=== PATIENT | male | born 1950 | race Caucasian/White ===

== ENCOUNTER → 2024-06-17 | Outpatient (CLI) | payer MEDICARE, OTHER, SELFPAY ==
[2024-06-18 14:11] LABS: PSA, Free 0.57 ng/mL; PSA, Free % 26.1 % (.)
== END | disposition home or self-care (01) ==
LOC: LAB 10:40
PROVIDERS: PCP Family Medicine; Referring Provider Urology; Visit Provider Urology
DX: R97.20 Elevated prostate specific antigen [PSA] (principal)
CPT/HCPCS: 36415; 84153; 84154

== ENCOUNTER → 2024-07-08 | Outpatient (CLI) | payer MEDICARE, OTHER, SELFPAY ==
--- NOTE | 2024-07-08 08:22 | MRI_ITS ---
EXAMINATION: MR Pelvis WO/W Contrast COMPARISON: None CLINICAL HISTORY: 73-year-old male with elevated PSA Most recent PSA = 2.18 ng/ml TECHNIQUE: Standard prostate MR protocol was used before and after administration of 16 cc of IV Clariscan. FINDINGS: Prostate volume: 83 cc PSA density: 0.03 ng/ml2 Length of membranous urethra: 11 mm Post-biopsy hemorrhage: None Multiparametric MR evaluation: Heterogeneous appearance of the central gland is consistent with benign prostatic hyperplasia. There is also diffuse heterogeneous T2 hypointensity of the peripheral gland concerning for prostatitis. No suspicious T2 hypointense or diffusion restricting focal lesions. Capsular margin and neurovascular bundle: Normal Seminal vesicles: Normal Lymph nodes: No lymphadenopathy in the field of view. Bones: No suspicious lesions in the field of view. MRI/Pelvis W/WO Contrast IMPRESSION: PI-RADS 2: Benign prostatic hyperplasia and prostatitis. No suspicious T2 hypointense or diffusion restricting lesions. Electronically Signed: Chente Escamilla MD at 22:46 EDT ,
[2024-07-08 08:46] LABS: CREATININE FINGERSTICK < 1.0 mg/dL (0.70-1.30); EGFR FINGERSTICK > 60.0000 mL/min (>60)
== END | disposition home or self-care (01) ==
LOC: MRI 08:01
PROVIDERS: PCP Family Medicine; Referring Provider Urology; Visit Provider Urology
DX: Z01.812 Encounter for preprocedural laboratory examination (principal); R97.20 Elevated prostate specific antigen [PSA]; N40.0 Benign prostatic hyperplasia without lower urinary tract symptoms
CPT/HCPCS: 72197; A9575